=== PATIENT | female | born 1965 | race Caucasian/White ===

== ENCOUNTER → 2020-01-02 | Day surgery (SDC) | payer BC, OTHER ==
[~2020-01-02] MED LIST: BUPIVACAINE HCL 0.5% INJ 30 ML VIAL INJ ONE; CLINDAMYCIN PHOS 900MG/ 50ML 50 ML IV ONE; DEXAMETHASONE SOD PHOS INJ 4 MG/ML VIAL ONE; ESTRADIOL1 MG PO; ETOMIDATE 2 MG/ML 10 ML INJ IV ONE; FENTANYL CITRATE/PF 100MCG/2 ML INJ ONE; KETOROLAC TROMETHAMINE 30 MG/ML VIAL ONE; MIDAZOLAM HCL 2 MG/2 ML VIAL ONE; ONDANSETRON HCL INJ 2MG/ML 2ML 2 MG/ML VIAL ONE; PROGESTERONE100 MG PO; PROPOFOL IV EMULSION 10 MG/ML 20 ML VIAL ONE; SEVOFLURANE INHAL SOLN 250 ML PEN BTL ONE
[2020-01-02 08:10] VITALS: BP 124/73
--- NOTE | 2020-01-02 10:13 | Operative Report ---
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 PLANNED PROCEDURE: Neuroma right 2nd and 3rd interspace excision. INSTRUMENT SETTER: Chris Dukes DPM. ANESTHESIA: General with a postoperative block consisting of 15 mL 0.5% Marcaine plain, mixed with 1 mL of dexamethasone phosphate. HEMOSTASIS: Pneumatic thigh tourniquet set at 350 mmHg for a total time approximately 30 minutes. MATERIALS: 3-0 Vicryl, 4-0 nylon. ESTIMATED BLOOD LOSS: Less than 10 mL. PATHOLOGY: None. PROCEDURE NOTE: The patient was seen in the preoperative waiting room. The correct procedure and site were identified. The patient was brought to the operating room and placed on the operating table in a supine position. General anesthesia was initiated at this time. A well-padded pneumatic tourniquet was placed about the patient's right thigh. The right foot and ankle were scrubbed, prepped, and draped in the usual aseptic manner. The right foot, ankle and leg was exsanguinated with an Esmarch bandage and the pneumatic thigh tourniquet was inflated at 350 mmHg for a total time of approximately 30 minutes. Attention was directed to the dorsal aspect of the patient's right foot, where a 4 cm linear incision made directly between the 2nd and 3rd interspace. Incision was carried through subcutaneous tissue them from deep or underling structures. All vital and neurovascular structures were identified, retracted medially and laterally. All bleeders were cauterized or ligated as deemed necessary. Next, the dissection was carried down to the level of the deep transverse metatarsal ligament, which was incised to allow for good visualization. Interspace neuroma was noted to be inflamed and tortuous. There was also likely a small ganglion cyst apparent with the nerve. This was excised, passed off to the back table. The wound was then copiously irrigated with sterile saline. Capsule and deep tissue were reapproximated with 3-0 Vicryl, subcutaneous tissue with 3-0 Vicryl. The skin was closed using a simple interlocking stitch of 4-0 nylon. Attention was directed to the 3rd interspace, where the same exact procedure that was mentioned above was performed with no additions, subtractions, or modifications and the same excellent result was achieved. The incision site was dressed with Adaptic, 4x4s, Kerlix, Peter wrap, and a postop shoe. The patient tolerated the procedure and anesthesia well. The patient was transferred to the postoperative recovery with vital signs stable and vascular status intact. The patient was monitored there for a short period time before being sent home with the following written and oral instructions. 1. Keep the dressing clean, dry, and intact. 2. The patient is to remain partial weightbearing right lower extremity in a postop shoe to avoid excessive ambulation until being seen in the office. 3. The patient was given office number, instructed to contact us if any problems arise. Dictated by Chris Dukes DPM S JONATHON Samaniego (Charley)/MODL /[id number]
== END | disposition home or self-care (01) ==
LOC: OR 05:21
PROVIDERS: ATTEND Podiatrist Foot & Ankle Surgery
DX: G57.61 Lesion of plantar nerve, right lower limb (principal); M67.471 Ganglion, right ankle and foot; Z88.0 Allergy status to penicillin; Z01.810 Encounter for preprocedural cardiovascular examination; Z01.812 Encounter for preprocedural laboratory examination; Z11.59 Encounter for screening for other viral diseases
CPT/HCPCS: 28080 ×2; 93005; J1100; J1885; J2250; J2405; J2704; J3010; U0002